=== PATIENT | female | born 1955 | race Caucasian/White ===

== ENCOUNTER 2023-01-07 06:49 | Day surgery (SDC) | payer MEDICARE, OTHER ==
[~2023-01-07] VITALS: Ht 157.5 cm; Wt 76.8 kg
[2023-01-07] VITALS (15 sets, daily range): BP systolic 162–200; BP diastolic 80–102; PULSE 53–98; RESP 8–16; TEMP 97.8; O2SAT 95–100
[~2023-01-07 06:49] MED LIST: ATEN-236 PO; B COMPLEX; BUTA1TAB52 PO; CLON0.1T2 PO; DOCUMENT DATE & TIME OF BETA-BLOCKER PO ONE; DOXA8TAB90 PO; FAMO20TA47 PO; HYDR-4070 PO; LORA10CA PO; LORA2TAB96 PO; TURMERIC/GINGER; cefazolin 2gm/D5W 100mL 100 ML IV ONE; famotidine 20mg tablet PO ONE; ringers solution, lacted 1,000 ML IV SCH
[2023-01-07 08:39] LABS: PRE OP PARTIAL THROMB. TIME 27 SECONDS (22-32); PROTHROMBIN TIME 9.9 SECONDS (9.0-12.0)
[2023-01-07 08:41] LABS: INR 0.9 INR
[2023-01-07] MEDS ORDERED: propofol inj 20 ML IV ONE (09:43)
[2023-01-07] MEDS ORDERED: fentaNYL/PF 50MCG/1 ML 2ML syringe ONE (09:43)
[2023-01-07] MEDS ORDERED: midazolam 1 mg/ML 2ml injection ONE (09:43)
[2023-01-07] MEDS ORDERED: BUPIVAcaine/PF 2.5mg/ml (0.25%) 10ml vial ONE (09:48)
[2023-01-07] MEDS ORDERED: LIDOcaine 1% (10mg/ml)w/preservative inj. 20ml MDV ONE (09:48)
[2023-01-07] MEDS ORDERED: sevoflurane 250ml liquid IH ONE (10:11)
[2023-01-07] MEDS ORDERED: dexamethasone sod phosphate 4mg/ml inj. ONE (10:29)
[2023-01-07] MEDS ORDERED: ondansetron/PF 4mg/2ml inj ONE (11:19)
[2023-01-07] MEDS ORDERED: acetaminophen 1,000mg/100ml IV 100 ML IV ONE (11:20)
--- NOTE | 2023-01-07 11:36 | NUR ---
Received from OR via [email or web address], accompanied by Anesthesiologist DR CORNEJO and report given by Anesthesiolgist. PT PRESENTS WITH PIV 20G KYLER STEINER, SPO2 100% MASK 6L, LR RUNNING AT 100MLS/HR, PT REPORTS PAIN 0/10. VSS. Addendum: 01/07/23 at 1153 by Naty Tim RN, RN Amended: Links added.
[2023-01-07] MEDS ORDERED: HYDROcodone/acetaminophen 5mg/325mg tablet PO ONE (12:35)
[2023-01-07] MEDS ORDERED: ondansetron/PF 4mg/2ml inj IV PRN (12:50)
[2023-01-07] MEDS ORDERED: ringers solution, lacted 1,000 ML IV SCH (12:50)
[2023-01-07] MEDS ORDERED: morphine 4 MG/ML inj SYRINge IV PRN (12:50)
[2023-01-07] MEDS ORDERED: proCHLORperazine 10 MG/2 ml inj IV PRN (12:50)
[2023-01-07] MEDS ORDERED: morphine 2 MG/ML inj. syringe IV PRN (12:50)
[2023-01-07] MEDS ORDERED: meperidine/PF 25mg/ml syringe IV PRN ×3 (12:50)
[2023-01-07] MEDS ORDERED: hydrALAZINE 20mg/ml inj. IV PRN (13:10)
--- NOTE | 2023-01-07 13:46 | NUR ---
PT HAS BEEDN AVALAUTED AND TREATED FOR LEFT BREAST EXCISION. IV DC'D WITH CANULA INTACT. I HAVE REVIEWED D/C INSTRUCTIONS WITH PATIENT and they have verbalized understanding patient d/c home with all belongings, PT WHEELED OUT IN WHEELCHAIR TO FAMILY. FAMILY SKIP gave transport home. Addendum: 01/07/23 at 1356 by Naty Tim RN, RN Amended: Links added.
== END 2023-01-07 13:46 | disposition home or self-care (01) ==
LOC: PAS 06:49
PROVIDERS: ATTEND Surgery
DX: D05.12 Intraductal carcinoma in situ of left breast (principal); G43.909 Migraine, unspecified, not intractable, without status migrainosus; K21.9 Gastro-esophageal reflux disease without esophagitis; F41.9 Anxiety disorder, unspecified; F32.A Depression, unspecified; Z79.01 Long term (current) use of anticoagulants; Z79.899 Other long term (current) drug therapy; Z98.890 Other specified postprocedural states
CPT/HCPCS: 19302; 36415; 82948; 85610; 85730; A6258; J0131; J0360; J0690; J1100; J2250; J2405; J2704; J3010; J3490; J7030; J7120; Z7506; Z7508; Z7512; A4215; A4618; A7000